=== PATIENT | female | born 1960 | race Two or more races ===

== ENCOUNTER 2020-11-24 07:10 | Emergency (ER) | payer OTHER ==
[~2020-11-24] VITALS: Ht 149.9 cm; Wt 70.3 kg
[2020-11-24] MEDS ORDERED: TRENTRAL PO (07:31)
[2020-11-24] MEDS ORDERED: ATACAND16 MG PO (07:31)
[2020-11-24] MEDS ORDERED: ATACAND4 MG PO (07:31)
[2020-11-24] MEDS ORDERED: PEPCID AC20 MG PO (12:43)
[2020-11-24] MEDS ORDERED: SKELAXIN800 MG PO (12:43)
== END 2020-11-24 12:53 | disposition home or self-care (01) ==
LOC: ER 07:10
DX: M94.0 Chondrocostal junction syndrome [Tietze] (principal); R09.81 Nasal congestion; R07.89 Other chest pain; Z03.818 Encounter for observation for suspected exposure to other biological agents ruled out

== ENCOUNTER 2021-01-05 10:43 | Emergency (ER) | payer OTHER ==
[~2021-01-05] VITALS: Ht 149.9 cm; Wt 70.3 kg
[~2021-01-05 10:43] MED LIST: ATACAND16 MG PO; ATACAND4 MG PO; PEPCID AC20 MG PO; SKELAXIN800 MG PO; TRENTRAL PO
[2021-01-05] MEDS ORDERED: ZESTRIL2.5 MG (10:53)
[2021-01-05] MEDS ORDERED: INTESTINEX680 M1 PO (16:17)
[2021-01-05] MEDS ORDERED: PEPCID AC20 MG PO (16:17)
[2021-01-05] MEDS ORDERED: AMOX-CLAV 875-1 EACH PO (16:17)
[2021-01-05] MEDS ORDERED: LEVSIN/SL0.125 MG PO (16:17)
== END 2021-01-05 18:44 | disposition home or self-care (01) ==
LOC: ER 10:43
DX: K52.89 Other specified noninfective gastroenteritis and colitis (principal); E86.0 Dehydration; R10.32 Left lower quadrant pain; R10.31 Right lower quadrant pain